=== PATIENT | female | born 1985 | race Caucasian/White ===

== ENCOUNTER 2020-07-13 09:05 | Day surgery (SDC) | payer OTHER ==
[~2020-07-13] VITALS: Ht 177.8 cm; Wt 116.4 kg
[2020-07-13] MEDS ORDERED: LACTATED RINGERS 1,000 ML IV SCH (09:26)
[2020-07-13] MEDS ORDERED: CHLORHEXIDINE 15 ML UDC MM ONE (09:30)
[2020-07-13] MEDS ORDERED: CEFTRIAXONE INJ (09:33)
[2020-07-13] MEDS ORDERED: AZITHROMYCIN (09:33)
[2020-07-13 09:51] VITALS: BP 139/93
[2020-07-13 09:56] LABS: HCG UR SG 1.013 (1.003-1.030)
[2020-07-13] MEDS ORDERED: FENTANYL PF 100 MCG/2ML ONE (10:22)
[2020-07-13] MEDS ORDERED: MIDAZOLAM 1 MG/ML, 2ML ONE (10:22)
[2020-07-13] MEDS ORDERED: ACETAMINOPHEN 500 MG TABLET ONE (10:47)
[2020-07-13] MEDS ORDERED: LIDOCAINE 1%, 20ML ONE (10:52)
[2020-07-13] MEDS ORDERED: BUPIVACAINE/PF 0.5% ONE (10:52)
[2020-07-13] MEDS ORDERED: ONDANSETRON 2MG/ML, 2ML ONE (11:05)
[2020-07-13] MEDS ORDERED: DEXAMETHASONE 4 MG/ML, 1ML ONE (11:05)
[2020-07-13] MEDS ORDERED: CEFAZOLIN 1,000 MG ONE (11:05)
[2020-07-13] MEDS ORDERED: PROPOFOL 10 MG/ML, 20ML ONE (11:05)
[2020-07-13] MEDS ORDERED: KETOROLAC 30 MG/1 ML ONE (11:05)
[2020-07-13] MEDS ORDERED: SUCCINYLCHOLINE 20 MG/ML, 10ML ONE (11:05)
[2020-07-13] MEDS ORDERED: LABETALOL 5MG/ML, 20ML IV PRN (12:00)
[2020-07-13] MEDS ORDERED: ALBUTEROL SULFATE 2.5 MG/3 ML NPPB PRN (12:00)
[2020-07-13] MEDS ORDERED: HYDROmorphone 2 MG/ML, 1ML IVPush PRN (12:00)
[2020-07-13] MEDS ORDERED: FENTANYL PF 100 MCG/2ML IV PRN (12:00)
[2020-07-13] MEDS ORDERED: PROMETHAZINE 25 MG/ML, 1ML IV PRN (12:00)
[2020-07-13] MEDS ORDERED: MEPERIDINE/PF 25MG/0.5ML IVPush PRN (12:00)
[2020-07-13] MEDS ORDERED: DIAZEPAM 5 MG/ML, 2ML IVPush PRN (12:00)
[2020-07-13] MEDS ORDERED: OXYcodone 5 MG/5 ML ORAL.SOL UDC PO PRN (12:00)
[2020-07-13] MEDS ORDERED: hydrALAzine 20 MG/ML, 1ML IV PRN (12:00)
[2020-07-13] MEDS ORDERED: MEPERIDINE/PF 25MG/ML,1ML ONE (12:30)
[2020-07-13] MEDS ORDERED: OXYcodone 5 MG/5 ML ORAL.SOL UDC ONE (12:31)
== END 2020-07-13 14:45 | disposition home or self-care (01) ==
LOC: OUT 09:05
PROVIDERS: ATTEND Orthopaedic Surgery Foot and Ankle Surgery
DX: S92.351K Displaced fracture of fifth metatarsal bone, right foot, subsequent encounter for fracture with nonunion (principal); Z20.828 Contact with and (suspected) exposure to other viral communicable diseases; E66.01 Morbid (severe) obesity due to excess calories; Z79.899 Other long term (current) drug therapy; Z87.891 Personal history of nicotine dependence; Z82.61 Family history of arthritis; W18.39XD Other fall on same level, subsequent encounter
CPT/HCPCS: 28322; 36415; 73620; 76000; 81025; 87635; C1713; J0330; J0690; J1100; J1885; J2175; J2250; J2405; J2704; J3010; J7120